=== PATIENT | male | born 1955 | race Caucasian/White ===

== ENCOUNTER 2020-05-17 17:00 | Outpatient (CLI) | payer OTHER | END 2020-05-17 17:01 | disposition home or self-care (01) | LOC: SLEEPLAB 17:00 | PROVIDERS: ATTEND Otolaryngology Plastic Surgery within the Head & Neck | DX: G47.33 Obstructive sleep apnea (adult) (pediatric) (principal); R53.83 Other fatigue; R06.83 Snoring; K21.9 Gastro-esophageal reflux disease without esophagitis; G47.00 Insomnia, unspecified | CPT/HCPCS: 95806 ==

== ENCOUNTER 2020-06-25 19:30 | Outpatient (CLI) | payer OTHER | END 2020-06-25 19:31 | disposition home or self-care (01) | LOC: SLEEPLAB 19:30 | PROVIDERS: ATTEND Otolaryngology Plastic Surgery within the Head & Neck | DX: G47.33 Obstructive sleep apnea (adult) (pediatric) (principal); R53.83 Other fatigue; K21.9 Gastro-esophageal reflux disease without esophagitis; R06.83 Snoring; G47.10 Hypersomnia, unspecified; E66.9 Obesity, unspecified; Z68.33 Body mass index [BMI] 33.0-33.9, adult | CPT/HCPCS: 95811 ==

== ENCOUNTER 2024-08-04 14:31 | Outpatient (CLI) | payer MEDICARE | END 2024-08-04 14:32 | disposition home or self-care (01) | LOC: BICMRI 14:31 | PROVIDERS: ATTEND Orthopaedic Surgery Foot and Ankle Surgery | DX: M79.671 Pain in right foot (principal); S96.811A Strain of other specified muscles and tendons at ankle and foot level, right foot, initial encounter; M19.071 Primary osteoarthritis, right ankle and foot; S93.491A Sprain of other ligament of right ankle, initial encounter; S93.411A Sprain of calcaneofibular ligament of right ankle, initial encounter ==